=== PATIENT | male | born 1950 | race Two or more races ===

== ENCOUNTER 2018-12-23 05:16 | Day surgery (SDC) | payer OTHER ==
[~2018-12-23 05:16] MED LIST: UROXATRAL10 MG PO
== END 2018-12-23 11:45 | disposition home or self-care (01) ==
LOC: CIR.AMB 05:16
DX: K42.9 Umbilical hernia without obstruction or gangrene (principal)

== ENCOUNTER 2020-04-19 10:44 | Outpatient (CLI) | payer OTHER | END 2020-04-19 11:12 | disposition home or self-care (01) | LOC: NUCLEAR 10:44 | PROVIDERS: ATTEND Specialist | DX: I73.9 Peripheral vascular disease, unspecified (principal); Z95.820 Peripheral vascular angioplasty status with implants and grafts ==

== ENCOUNTER → 2020-04-21 | Outpatient (CLI) | payer OTHER | END | disposition home or self-care (01) | LOC: NUCLEAR 10:32 | PROVIDERS: ATTEND Specialist | DX: I82.403 Acute embolism and thrombosis of unspecified deep veins of lower extremity, bilateral (principal); I87.2 Venous insufficiency (chronic) (peripheral); Z95.820 Peripheral vascular angioplasty status with implants and grafts ==

== ENCOUNTER → 2020-05-03 | Outpatient (CLI) | payer OTHER | END | disposition home or self-care (01) | LOC: MRI 10:15 | PROVIDERS: ATTEND Specialist | DX: M25.461 Effusion, right knee (principal); M25.561 Pain in right knee | CPT/HCPCS: 73721 ==

== ENCOUNTER 2021-04-14 08:12 | Emergency (ER) | payer OTHER ==
[~2021-04-14] VITALS: Ht 167.6 cm; Wt 92.1 kg
[2021-04-14] MEDS ORDERED: ULTRAM50 MG PO (11:38)
== END 2021-04-14 12:43 | disposition home or self-care (01) ==
LOC: ER 08:12
DX: N21.0 Calculus in bladder (principal); R10.31 Right lower quadrant pain

== ENCOUNTER 2022-09-19 07:58 | Outpatient (CLI) | payer OTHER ==
[~2022-09-19 07:58] MED LIST changes: +CIPRO500 MG PO; +CRESTOR5 MG PO; +LISINOPRIL1 GM MC; +NORVASC2.5 M1 PO; +TAMS0.4C PO; +ULTRAM50 MG PO; +VITAMIN D-40010 MCG PO
== END 2022-09-19 08:09 | disposition home or self-care (01) ==
LOC: MRI 07:58
PROVIDERS: ATTEND Orthopaedic Surgery
DX: S83.200A Bucket-handle tear of unspecified meniscus, current injury, right knee, initial encounter (principal); S83.201A Bucket-handle tear of unspecified meniscus, current injury, left knee, initial encounter; M25.561 Pain in right knee; M25.562 Pain in left knee
CPT/HCPCS: 73721

== ENCOUNTER 2022-10-12 08:18 | Outpatient (CLI) | payer OTHER | END 2022-10-12 08:30 | disposition home or self-care (01) | LOC: MRI 08:18 | PROVIDERS: ATTEND Orthopaedic Surgery | DX: M54.59 Other low back pain (principal); M25.551 Pain in right hip; M25.552 Pain in left hip | CPT/HCPCS: 72148 ==

== ENCOUNTER 2024-01-10 12:45 | Inpatient (IN) | payer OTHER ==
[~2024-01-10] VITALS: Ht 167.6 cm; Wt 92.5 kg
[2024-01-10 08:52] LABS: PH,URINE 6.5 (5.0-8.0); URINE APPEARANCE Cloudy; URINE BILIRRUBIN Negative (NEGATIVE); URINE BLOOD Large; URINE COLOR Dark Yellow; URINE GLUCOSE Negative (NEGATIVE); URINE KETONE Trace (NEGATIVE); URINE LEUKOCYTE Trace; URINE NITRATE Negative; URINE PROTEIN 30 (NEGATIVE); URINE UROBILINOGEN 0.2 E.U./dl
[2024-01-10 08:54] LABS: HEMATOCRIT 38.5 % (39.0-48.0); HEMOGLOBIN 12.9 g/dL (13-16.00); MEAN CELL VOLUME 95.8 fL (80.0-100.00); MEAN CORPUSCULAR HEMOGLOBIN 32.2 pg (27.00-32.0); MEAN CORPUSCULAR HGB CONC 33.6 g/dl (32.0-36.0); RED BLOOD COUNT 4.02 M/uL (4.00-6.00); RED CELL DISTRIBUTION WIDTH 14.8 % (11.5-14.5)
[2024-01-10 08:57] LABS: PLATELET COUNT 127 K/uL (150-450); URINE BACTERIA 4079.8 uL (0.0-1933); URINE EPITHELIAL CELLS 26.8 uL (0.0-38.8); URINE RBC 6887.7 uL (0.0-20.8); URINE WBC 34.9 uL (0.0-23.2)
[2024-01-10 09:03] LABS: INR 1.01; PARTIAL THROMBOPLASTIN TIME 30.2 SECONDS (22.0-34.0)
[2024-01-10 09:12] VITALS: BP 121/80
[2024-01-10 09:30] LABS: CALCIUM 9.1 mg/dL (8.5-10.1); CREATININE SERUM 1.14 mg/dL (0.70-1.30); GFR 62.97; POTASSIUM 4.44 mEq/L (3.5-5.1)
[2024-01-10 10:11] LABS: RH POSITIVE
[2024-01-15] MEDS ORDERED: BUPIVACAINE HCL 30 ML VIAL IV ONE (09:30)
[2024-01-15] MEDS ORDERED: ENOXAPARIN SODIUM 40 MG/0.4 ML SYRINGE SUBCUTANEO ONE (09:30)
[2024-01-15] MEDS ORDERED: CEFAZOLIN SODIUM 1,000 MG VIAL IV ONE (09:30)
[2024-01-15] MEDS ORDERED: HEMOSTATIC MATRIX 1 KIT KIT TOP ONE (10:30)
[2024-01-15] MEDS ORDERED: SURGIFLO APPLICATOR 1 EACH APPL TOP ONE (10:30)
[2024-01-15] MEDS ORDERED: ONDANSETRON HCL 2 MG/ML VIAL IV PRN (11:30)
[2024-01-15] MEDS ORDERED: RINGERS SOLUTION,LACTATED 1,000 ML IV SCH (11:30)
[2024-01-15] MEDS ORDERED: OxyCODONE HCL/APAP UD (PERCOCET) PO PRN (11:30)
[2024-01-15 11:48] LABS: HEMATOCRIT 33.7 % (39.0-48.0); HEMOGLOBIN 11.5 g/dL (13-16.00); MEAN CELL VOLUME 97.4 fL (80.0-100.00); MEAN CORPUSCULAR HEMOGLOBIN 33.2 pg (27.00-32.0); MEAN CORPUSCULAR HGB CONC 34.1 g/dl (32.0-36.0); RED BLOOD COUNT 3.46 M/uL (4.00-6.00); RED CELL DISTRIBUTION WIDTH 13.7 % (11.5-14.5)
[2024-01-15] MEDS ORDERED: CEFAZOLIN SODIUM 1,000 MG VIAL IV SCH (12:00)
[2024-01-15] MEDS ORDERED: MORPHINE SULFATE 4 MG/ML VIAL IV ONE ×2 (12:00→12:45)
[2024-01-15 12:02] LABS: PLATELET COUNT 107 K/uL (150-450)
[2024-01-15] MEDS ORDERED: SUGAMMADEX SODIUM 200 MG/2 ML VIAL IV ONE (14:30)
[2024-01-15] MEDS ORDERED: KETOROLAC TROMETHAMINE 30 MG VIAL IV SCH (17:00)
[2024-01-15] MEDS ORDERED: POLYETHYLENE GLYCOL 3350 17 GM BLIST.PACK PO SCH (17:00)
[2024-01-15] MEDS ORDERED: GABAPENTIN 300 MG CAPSULE PO SCH (17:00)
[2024-01-15] MEDS ORDERED: FAMOTIDINE/PF 20 MG/2 ML VIAL IV SCH (21:00)
[2024-01-16 00:05] VITALS: BP 141/87; O2SAT 100
[2024-01-16 06:17] LABS: HEMATOCRIT 31.2 % (39.0-48.0); HEMOGLOBIN 10.6 g/dL (13-16.00); MEAN CELL VOLUME 97.3 fL (80.0-100.00); MEAN CORPUSCULAR HEMOGLOBIN 33.1 pg (27.00-32.0); RED BLOOD COUNT 3.21 M/uL (4.00-6.00); RED CELL DISTRIBUTION WIDTH 14.1 % (11.5-14.5)
[2024-01-16 06:30] LABS: PLATELET COUNT 104 K/uL (150-450)
[2024-01-16 06:34] LABS: CALCIUM 7.9 mg/dL (8.5-10.1); GFR 73.24; PHOSPHOROUS 2.6 mg/dL (2.5-4.9); POTASSIUM 4.2 mEq/L (3.5-5.1)
[2024-01-16 08:36] VITALS: BP 141/83; O2SAT 97
[2024-01-16] MEDS ORDERED: ENOXAPARIN SODIUM 40 MG/0.4 ML SYRINGE SUBCUTANEO SCH (09:00)
[2024-01-16] MEDS ORDERED: LISINOPRIL 10 MG TABLET PO SCH (09:00)
[2024-01-16] MEDS ORDERED: AMLODIPINE BESYLATE 2.5 MG TABLET PO SCH (09:00)
[2024-01-16] MEDS ORDERED: SOD FERRIC GLUC COMPLX/SUCROSE 62.5 MG in 0.9 % SODIUM CHLORIDE 50 ML IV SCH (09:36)
[2024-01-16] MEDS ORDERED: Cyanocobalamin/Mecobalamin 1 TAB.SL SL SCH (09:36)
[2024-01-16 13:19] LABS: HEMATOCRIT 30.5 % (39.0-48.0); HEMOGLOBIN 10.5 g/dL (13-16.00); MEAN CELL VOLUME 95.9 fL (80.0-100.00); MEAN CORPUSCULAR HGB CONC 34.4 g/dl (32.0-36.0); RED BLOOD COUNT 3.18 M/uL (4.00-6.00); RED CELL DISTRIBUTION WIDTH 14.2 % (11.5-14.5)
[2024-01-16 13:22] LABS: PLATELET COUNT 93 K/uL (150-450)
[2024-01-16 16:00] VITALS: BP 118/69; O2SAT 96
[2024-01-17] VITALS: BP 109/60; O2SAT 96
[2024-01-17] MEDS ORDERED: PANTOPRAZOLE SODIUM 40 MG/VIAL VIAL IV SCH (06:00)
[2024-01-17 06:23] LABS: HEMOGLOBIN 9.7 g/dL (13-16.00); MEAN CELL VOLUME 96.3 fL (80.0-100.00); MEAN CORPUSCULAR HEMOGLOBIN 33.5 pg (27.00-32.0); MEAN CORPUSCULAR HGB CONC 34.8 g/dl (32.0-36.0); RED BLOOD COUNT 2.91 M/uL (4.00-6.00); RED CELL DISTRIBUTION WIDTH 14.3 % (11.5-14.5)
[2024-01-17 06:27] LABS: PLATELET COUNT 94 K/uL (150-450)
[2024-01-17 06:59] LABS: COL EPI 146 SECONDS (82-175)
[2024-01-17 07:19] LABS: MANUAL PLATELET COUNT 208
[2024-01-17] MEDS ORDERED: BISACODYL 10 MG/SUPP.RECT SUPP.RECT RECTAL STA (09:20)
[2024-01-17 16:12] VITALS: BP 147/77; O2SAT 98
[2024-01-18] VITALS: BP 99/58; O2SAT 95
[2024-01-18 08:00] VITALS: BP 134/76; O2SAT 96
[2024-01-18 08:54] LABS: HEMATOCRIT 26.7 % (39.0-48.0); HEMOGLOBIN 9.1 g/dL (13-16.00); MEAN CELL VOLUME 97.8 fL (80.0-100.00); MEAN CORPUSCULAR HEMOGLOBIN 33.4 pg (27.00-32.0); MEAN CORPUSCULAR HGB CONC 34.2 g/dl (32.0-36.0); RED BLOOD COUNT 2.73 M/uL (4.00-6.00)
[2024-01-18 09:45] LABS: PLATELET COUNT 98 K/uL (150-450)
== END 2024-01-18 12:07 | disposition home or self-care (01) | DRG 714 ==
LOC: O/R 01-15 05:20 → SURH 01-15 07:00 → SURG 01-15 14:25
PROVIDERS: Internal Medicine Geriatric Medicine; ADMIT Urology; ATTEND Urology
PROC: 0V508ZZ Destruction of Prostate, Via Natural or Artificial Opening Endoscopic (ICD-10-PCS; principal; 2024-01-15 07:00)
DX: N40.1 Benign prostatic hyperplasia with lower urinary tract symptoms (principal)

== ENCOUNTER 2024-10-27 09:18 | Inpatient (IN) | payer OTHER ==
[~2024-10-27] VITALS: Ht 167.6 cm; Wt 81.2 kg
[2024-10-27] MEDS ORDERED: ZESTRIL10 M1 (10:13)
[2024-10-27] MEDS ORDERED: MOUNJARO2.5 MG/0.5 (10:14)
[2024-10-27] MEDS ORDERED: METFORMIN HCL500 M3 (10:14)
[2024-10-27] MEDS ORDERED: FINASTERIDE5 MG (10:14)
--- NOTE | 2024-10-27 10:27 | NUR ---
PTE ALERTA Y ORIENTADO X3 REFIERE VENIR POR HEMATURIA. SE MAYANK S/V Y SE UBICA.
[2024-10-27] MEDS ORDERED: 0.9 % SODIUM CHLORIDE 1,000 ML IV SCH ×2 (10:45→14:15)
[2024-10-27 12:10] LABS: BASO % 0.4 % (0.1-1.2); EOS # 0.05 (0.04-0.54); EOS % 0.9 % (0.7-7.0); LYMPH # 1.15 (1.18-3.74); LYMPH % 21.4 % (19.3-53.1); MEAN PLATELET VOLUME 11.50 fl (9.4-12.4); MONO # 0.37 (0.24-0.82); MONO % 6.9 % (4.7-12.5); NEUT # 3.76 (1.56-6.13); NEUT % 70.0 % (34.0-71.1); RED CELL DISTRIBUTION WIDTH 13.3 % (11.6-14.4)
--- NOTE | 2024-10-27 12:17 | NUR ---
PTE EVALUADO POR DR. SCHNEIDER, PRESENTANDO MAIK EN [place], SE REALIZA CARINE DE MUESTYRAS DE MAIK BAJO MEDIDAS ASEPTICA Y SE ORIENTA SOBRE PROCEDIMIENTOS REALIZADOS Y PROCESO DE RE-EVALUACION MEDICA. CLIENTE ALERTA Y ORIENTADO TEODORO LA INTERVENCION RN.
[2024-10-27 12:22] LABS: INR 1.0
[2024-10-27 12:25] LABS: BUN CREA RATIO 10.0 (7.0-25.0); CREATININE SERUM 1.13 mg/dL (0.70-1.30); GFR 63.43; GLUCOSE FASTING 98.0 mg/dL (65-100); OSMOLALITY SERUM 286.0 MOSM/KG (275-295)
[2024-10-27 12:27] LABS: URINE APPEARANCE Cloudy; URINE BILIRRUBIN Small (NEGATIVE); URINE BLOOD Large; URINE COLOR Red; URINE GLUCOSE Negative (NEGATIVE); URINE KETONE Negative (NEGATIVE); URINE LEUKOCYTE Small; URINE NITRATE Negative; URINE UROBILINOGEN 0.2 E.U./dl
[2024-10-27 13:00] LABS: URINE CRYSTALS FEW /HPF; URINE PROTEIN 300 (NEGATIVE)
[2024-10-27 13:01] LABS: URINE BACTERIA SOME; URINE EPITHELIAL CELLS 0-4 /HPF; URINE MUCUS SCANT; URINE RBC LOADED /HPF
[2024-10-27] MEDS ORDERED: levoFLOXacin IN DEXTROSE 5 % 150 ML IV SCH (14:21)
[2024-10-27] MEDS ORDERED: PANTOPRAZOLE SODIUM 40 MG/VIAL VIAL IV SCH (14:22)
[2024-10-27] MEDS ORDERED: DEXTROSE 50 % IN WATER 0.5 G/ML DISP.SYRIN IV PRN (14:30)
[2024-10-27] MEDS ORDERED: INSULIN LISPRO 1,000 UNIT/10 ML UNITS SUBCUTANEO PRN (14:30)
[2024-10-27] MEDS ORDERED: ENALAPRILAT DIHYDRATE 1.25 MG/ML VIAL IV PRN (14:30)
[2024-10-27 16:17] VITALS: BP 146/87; O2SAT 100
[2024-10-27 16:23] LABS: COL EPI 143 SECONDS (82-175)
[2024-10-27] MEDS ORDERED: ROSUVASTATIN CALCIUM 10 MG TABLET PO SCH (17:00)
[2024-10-27 20:45] VITALS: BP 135/81; O2SAT 99
[2024-10-28 00:31] VITALS: BP 135/76; O2SAT 100
[2024-10-28] MEDS ORDERED: AMINOCAPROIC ACID 1,000 MG in 0.9 % SODIUM CHLORIDE 250 ML IV NR (08:20)
[2024-10-28 08:23] LABS: BASO % 0.2 % (0.1-1.2); EOS # 0.04 (0.04-0.54); EOS % 0.8 % (0.7-7.0); LYMPH # 1.06 (1.18-3.74); LYMPH % 20.7 % (19.3-53.1); MEAN PLATELET VOLUME 11.20 fl (9.4-12.4); MONO # 0.48 (0.24-0.82); MONO % 9.4 % (4.7-12.5); NEUT # 3.53 (1.56-6.13); NEUT % 68.7 % (34.0-71.1); RED CELL DISTRIBUTION WIDTH 13.3 % (11.6-14.4)
[2024-10-28 08:56] LABS: TSH 0.914 uIU/mL (0.358-3.74)
[2024-10-28] MEDS ORDERED: AMLODIPINE BESYLATE 2.5 MG TABLET PO SCH (09:00)
[2024-10-28] MEDS ORDERED: LISINOPRIL 10 MG TABLET PO SCH (09:00)
[2024-10-28] MEDS ORDERED: FINASTERIDE 5 MG TABLET PO SCH (09:00)
[2024-10-28 09:41] VITALS: BP 124/82; O2SAT 98
[2024-10-28 16:45] VITALS: BP 132/90; O2SAT 98
[2024-10-28] MEDS ORDERED: AMINOCAPROIC ACID 20 MG/ML ML IV SCH (17:00)
[2024-10-29 00:57] VITALS: BP 124/78; O2SAT 98
[2024-10-29 08:00] VITALS: BP 123/75; O2SAT 97
[2024-10-29 08:45] LABS: BASO % 0.4 % (0.1-1.2); EOS # 0.06 (0.04-0.54); EOS % 1.2 % (0.7-7.0); LYMPH # 1.34 (1.18-3.74); LYMPH % 26.6 % (19.3-53.1); MEAN PLATELET VOLUME 11.70 fl (9.4-12.4); MONO # 0.51 (0.24-0.82); MONO % 10.1 % (4.7-12.5); NEUT # 3.08 (1.56-6.13); NEUT % 61.3 % (34.0-71.1); RED CELL DISTRIBUTION WIDTH 13.2 % (11.6-14.4)
[2024-10-29 16:00] VITALS: BP 142/88; O2SAT 98
[2024-10-29] MEDS ORDERED: CHLORHEXIDINE GLUCONATE 120 ML BOTTLE TOP ONE (16:28)
[2024-10-29] MEDS ORDERED: IOVERSOL 320 MG/ML - 50 ML VIAL IV ONE (17:55)
[2024-10-29] MEDS ORDERED: DESMOPRESSIN ACETATE 4 MCG/ML AMPUL IV ONE (20:15)
[2024-10-29] MEDS ORDERED: MORPHINE SULFATE 4 MG/ML VIAL IV ONE (21:00)
[2024-10-29 22:07] VITALS: BP 157/82; O2SAT 96
[2024-10-30 08:00] VITALS: BP 122/77; O2SAT 97
[2024-10-30 16:59] VITALS: BP 134/88; O2SAT 97
[2024-10-31 01:05] VITALS: BP 142/83; O2SAT 100
[2024-10-31 08:28] LABS: BASO % 0.3 % (0.1-1.2); EOS # 0.08 (0.04-0.54); EOS % 1.4 % (0.7-7.0); LYMPH # 1.37 (1.18-3.74); LYMPH % 23.5 % (19.3-53.1); MEAN PLATELET VOLUME 12.50 fl (9.4-12.4); MONO # 0.54 (0.24-0.82); MONO % 9.3 % (4.7-12.5); NEUT # 3.80 (1.56-6.13); NEUT % 65.3 % (34.0-71.1); RED CELL DISTRIBUTION WIDTH 13.2 % (11.6-14.4)
== END 2024-10-31 14:45 | disposition home or self-care (01) | DRG 658 ==
LOC: ER 09:18 → SURH 15:01 → SEC-K 15:01 → SURH 18:24
PROVIDERS: Emergency Medicine; Urology; ADMIT Internal Medicine Geriatric Medicine; ATTEND Internal Medicine Geriatric Medicine
PROC: BT12YZZ Fluoroscopy of Left Kidney using Other Contrast (ICD-10-PCS; 2024-10-29)
PROC: 0TB18ZX Excision of Left Kidney, Via Natural or Artificial Opening Endoscopic, Diagnostic (ICD-10-PCS; 2024-10-29)
PROC: 0T778DZ Dilation of Left Ureter with Intraluminal Device, Via Natural or Artificial Opening Endoscopic (ICD-10-PCS; principal; 2024-10-29 16:00)
DX: C65.2 Malignant neoplasm of left renal pelvis (principal); R31.0 Gross hematuria; E11.9 Type 2 diabetes mellitus without complications; Z79.4 Long term (current) use of insulin; D46.9 Myelodysplastic syndrome, unspecified; D64.9 Anemia, unspecified

== ENCOUNTER 2024-11-21 08:28 | Outpatient (CLI) | payer OTHER ==
[~2024-11-21 08:28] MED LIST changes: +FINASTERIDE5 MG; +METFORMIN HCL500 M3; +MOUNJARO2.5 MG/0.5; +ZESTRIL10 M1
== END 2024-11-21 08:31 | disposition home or self-care (01) ==
LOC: RAD 08:28
PROVIDERS: ATTEND Specialist
DX: M25.561 Pain in right knee (principal); M25.562 Pain in left knee